=== PATIENT | male | born 1980 | race Caucasian/White ===

== ENCOUNTER 2016-12-28 11:23 | Emergency (ER) | payer SELFPAY ==
[2016-12-28 11:37] VITALS: BP 119/50; PULSE 75; TEMP 97.4; BMI 28.0
--- NOTE | 2016-12-28 12:16 | PDOC ---
History of Present Illness - General Chief Complaint: Pain Stated Complaint: RT ARM PAIN Time Seen by Provider: 12/28/16 12:06 History Source: Patient Exam Limitations: No Limitations - History of Present Illness Initial Comments: 12/28/16 12:33 36 yr male states right elbow pain for 2 days with bruising. Pt states he fell one month ago on the right elbow. Pt drinks 4-5 times weekly. Pt denies fever or chills. Severity: reports: moderate Pain Location: reports: upper extremity (right elbow) Method of Injury: Yes: fall Past History - Past Medical History Allergies/Adverse Reactions: Allergies Allergy/AdvReac Type Severity Reaction Status Date / Time No Known Allergies Allergy Verified 12/28/16 11:37 Home Medications: Ambulatory Orders Naproxen [Naprosyn -] 500 mg PO BID PRN #14 tablet 12/28/16 Other medical history: denies - Family Disease History Comment:: 12/28/16 12:34 none relevant - Psycho/Social/Smoking Cessation Hx Suicidal Ideation: No Smoking History: Current every day smoker Number of Cigarettes Smoked Daily: 20 Information on smoking cessation initiated: Yes 'Breaking Loose' booklet given: 12/28/16 Hx Alcohol Use: Yes (daily) Drug/Substance Use Hx: No Substance Use Type: None *Physical Exam - Vital Signs Last Vital Signs Temp Pulse Resp BP Pulse Ox 97.4 F L 75 18 119/50 99 12/28/16 11:35 12/28/16 11:35 12/28/16 11:35 12/28/16 11:35 12/28/16 11:35 - Physical Exam General Appearance: Yes: Nourished, Appropriately Dressed HEENT: positive: EOMI, CHAGO, TMs Normal, Pharynx Normal Neck: negative: Tender Respiratory/Chest: positive: Lungs Clear, Wheezing (mild exp ). negative: Chest Tender Cardiovascular: positive: Regular Rhythm, Regular Rate Extremity: positive: Normal Capillary Refill, Normal Range of Motion (FROM no distress or limitations ), Tender (right medial elbow with boggyness , no redness, mild warmth to touch) Integumentary: positive: Normal Color, Dry, Warm Neurologic: positive: Fully Oriented, Alert, Normal Mood/Affect, Normal Response , Motor Strength 5/5 Procedures - Splinting Progress: 12/28/16 13:27 sling to right elbow ED Treatment Course - LABORATORY CBC & Chemistry Diagram: 12/28/16 12:42 - RADIOLOGY Radiology Studies Ordered: Category Date Time Status ELBOW-LEFT [RAD] Stat Radiology 12/28/16 12:04 Ordered Medical Decision Making - Medical Decision Making 12/28/16 13:22 *DC/Admit/Observation/Transfer Diagnosis at time of Disposition: High ankle sprain Qualifiers: Encounter type: initial encounter Laterality: left Qualified Code(s): S93.432A - Sprain of tibiofibular ligament of left ankle, initial encounter - Discharge Dispostion Disposition: HOME Condition at time of disposition: Good - Prescriptions Prescriptions: Naproxen [Naprosyn -] 500 mg PO BID PRN #14 tablet PRN Reason: Pain - Referrals Referrals: Irwin Perez MD [Staff Physician] - - Patient Instructions Additional Instructions: apply frequent warm compresses to the area of pain every 4hrs for 20 minutes use the sling while awake remove to sleep and bathe follow with the orthopedist this week call tomorrow to make appointment take naprosyn for pain as directed
[2016-12-28 12:56] LABS: BASOPHIL 0.5 % (0-2.0); EOSINOPHIL 4.1 % (0-4.5); MCH 32.5 pg (25.7-33.7); MCHC 34.9 g/dl (32.0-35.9); MEAN CELL VOLUME 93.1 fl (80-96); MEAN PLT VOLUME 9.7 fl (7.5-11.1); PLATELET COUNT 225 K/MM3 (134-434); WHITE BLOOD COUNT 5.6 K/mm3 (4.0-10.0)
[2016-12-28 13:08] LABS: C-REACTIVE PROTEIN 0.8 MG/DL (0.00-0.3); URIC ACID 4.9 mg/dL (2.6-7.2)
[2016-12-28] MEDS ORDERED: NAPROXEN 500 MG TABLET (FP) PO ONE (13:26)
[2016-12-28] MEDS ORDERED: NAPROXEN 500 MG TABLET (FP) ONE (13:32)
[2016-12-28 15:17] LABS: ERYTHROCYTE SEDIMENTATION RATE 5 mm/hr (0-10)
== END 2016-12-28 14:10 | disposition home or self-care (01) ==
LOC: JERFT 11:23
DX: M25.521 Pain in right elbow (principal); W19.XXXA Unspecified fall, initial encounter; Y93.89 Activity, other specified; Y92.89 Other specified places as the place of occurrence of the external cause; Y99.8 Other external cause status; F17.210 Nicotine dependence, cigarettes, uncomplicated
CPT/HCPCS: 36415; 73070-TC-RT; 84550; 85025; 85651; 86140; 99281-25